=== PATIENT | female | born 1980 | race Two or more races ===

== ENCOUNTER 2023-03-17 07:17 | Emergency (ER) | payer OTHER ==
[~2023-03-17] VITALS: Ht 165.1 cm; Wt 86.2 kg
[~2023-03-17 07:17] MED LIST: AMOX1TAB5 PO; CIPRO500 MG PO; EARACHE DROPS
[2023-03-17] MEDS ORDERED: MOLNUPIRAVIR (200 MG PO (10:05)
== END 2023-03-17 10:10 | disposition home or self-care (01) ==
LOC: ER 07:17
DX: U07.1 COVID-19 (principal); L01.00 Impetigo, unspecified

== ENCOUNTER 2024-08-11 13:42 | Emergency (ER) | payer OTHER ==
[~2024-08-11] VITALS: Ht 165.1 cm; Wt 81.6 kg
[~2024-08-11 13:42] MED LIST changes: +MOLNUPIRAVIR (200 MG PO
[2024-08-11] MEDS ORDERED: STIMATE (15:27)
[2024-08-11] MEDS ORDERED: 0.9 % SODIUM CHLORIDE 1,000 ML IV SCH (16:15)
[2024-08-11] MEDS ORDERED: ONDANSETRON HCL 2 MG/ML VIAL IV ONE (16:15)
[2024-08-11] MEDS ORDERED: MEPERIDINE HCL/PF 25 MG/ML VIAL IM ONE (16:15)
[2024-08-11 17:06] LABS: HEMATOCRIT 38.2 % (36.0-45.00); HEMOGLOBIN 13.1 g/dL (12.0-15.00); MEAN CELL VOLUME 84.8 fL (80.00-100.00); MEAN CORPUSCULAR HGB CONC 34.2 g/dl (32.0-36.0); PLATELET COUNT 338 K/uL (150-450); RED BLOOD COUNT 4.51 M/uL (4.00-6.00); RED CELL DISTRIBUTION WIDTH 13.6 % (11.5-14.5)
[2024-08-11 17:32] LABS: INR 1.09; PARTIAL THROMBOPLASTIN TIME 28.6 SECONDS (22.0-34.0); PROTHROMBIN TIME 11.8 SECONDS (9.0-11.5)
[2024-08-11 17:44] LABS: BILIRUBIN TOTAL 0.91 mg/dL (0.3-1.2); CALCIUM 9.4 mg/dL (8.5-10.1); CREATININE SERUM 0.51 mg/dL (0.55-1.02); GFR 132.24; GLOBULINA 3.5 G/DL (2.4-3.5); POTASSIUM 4.16 mEq/L (3.5-5.1); TOTAL PROTEIN 7.5 gm/dL (6.4-8.2)
[2024-08-11] MEDS ORDERED: KETOROLAC TROMETHAMINE 30 MG VIAL IV ONE (20:00)
== END 2024-08-11 20:09 | disposition home or self-care (01) ==
LOC: ER 13:43
PROVIDERS: General Practice
DX: N83.209 Unspecified ovarian cyst, unspecified side (principal); R10.2 Pelvic and perineal pain
CPT/HCPCS: 36415; 76830; 96365; 96366; 96372; 99284; J1885; J2405; J3490; J7030